=== PATIENT | female | born 1990 | race Caucasian/White ===

== ENCOUNTER 2016-10-23 21:53 | Observation (INO) | payer MEDICAID ==
[~2016-10-23] VITALS: Ht 157.5 cm; Wt 69.9 kg
[~2016-10-23 21:53] MED LIST: FERROUS SULFAT325 MG PO; PRENATAL VITAMI1 T10 PO
[2016-10-23] MEDS ORDERED: LACTATED RINGERS 1,000 ML IV SCH (23:00)
[2016-10-23] MEDS ORDERED: TERBUTALINE 1 MG/ML VIAL SUBQ SCH (23:00)
[2016-10-23] MEDS ORDERED: TERBUTALINE 1 MG/ML VIAL SUBQ ONE (23:12)
[2016-10-24] MEDS ORDERED: TERBUTALINE 2.5 MG TAB PO SCH
== END 2016-10-23 23:40 | disposition home or self-care (01) ==
LOC: MLD 21:53
PROVIDERS: ADMIT Obstetrics & Gynecology; ATTEND Obstetrics & Gynecology
DX: O26.899 Other specified pregnancy related conditions, unspecified trimester (principal); R10.30 Lower abdominal pain, unspecified; Z3A.00 Weeks of gestation of pregnancy not specified
CPT/HCPCS: G0378; J3105

== ENCOUNTER 2018-11-02 10:50 | Emergency (ER) | payer MEDICAID ==
[~2018-11-02] VITALS: Ht 157.5 cm; Wt 54.9 kg
[~2018-11-02 10:50] MED LIST changes: +FERR325E14 PO; -FERROUS SULFAT325 MG PO; +PREN-385 PO; -PRENATAL VITAMI1 T10 PO
[2018-11-02 11:00] VITALS: BP 104/57
--- NOTE | 2018-11-02 11:07 | NUR ---
PATIENT AMBULATED TO BED 4.
--- NOTE | 2018-11-02 11:14 | NUR ---
28 Y F BIB SELF C/O LEFT MID ABDOMINAL PAIN, HEADACHE, FEVER, N/V/D X 3 DAYS. NO FEVER AT THIS TIME. PAIN 9/10. BOWEL SOUNDS ACTIVE IN ALL 4 QUADRANTS. LAST EPISODE OF DIARRHEA THIS MORNING. URINE COLLECTED. BED IS DOWN, LOCKED, BED RAIL X 1, ERMD NOTIFIED. MED HX: DENIES
--- NOTE | 2018-11-02 11:23 | NUR ---
DR REYES AT BEDSIDE
[2018-11-02 11:24] VITALS: BP 108/61
--- NOTE | 2018-11-02 11:24 | NUR ---
Patient discharged with v/s stable BY DR REYES. Written and verbal after care instructions given and explained. Patient alert, oriented and verbalized understanding of instructions. Ambulatory with steady gait. All questions addressed prior to discharge. ID band removed. Patient advised to follow up with PMD. Rx of CIPRO given. Patient educated on indication of medication including possible reaction and side effects. Opportunity to ask questions provided and answered.
== END 2018-11-02 11:24 | disposition home or self-care (01) ==
LOC: MED 10:50
DX: A09 Infectious gastroenteritis and colitis, unspecified (principal); Z79.899 Other long term (current) drug therapy; Z98.890 Other specified postprocedural states
CPT/HCPCS: 81002; 81025; 99283